=== PATIENT | male | born 1955 | race Caucasian/White ===

== ENCOUNTER 2018-04-06 21:01 | Outpatient (REF) | payer MEDICAID, SELFPAY ==
[2018-04-06 21:53] LABS: ALT 41 U/L (12-78); AST 35 U/L (15-37); Albumin 3.7 g/dL (3.4-5.0); Alkaline Phosphatase 103 U/L (46-116); Anion Gap 7.3 mmol/L (3-11); BUN 19 mg/dL (7-18); Bilirubin, Total 0.3 mg/dL (0.2-1.0); CO2 26.7 mmol/L (21.0-32.0); CREATININE 0.91 mg/dL (0.70-1.30); Calcium 9.2 mg/dL (8.5-10.1); Chloride 103 mmol/L (98-107); Cholesterol 213 mg/dL (50-200); Glucose 115 mg/dL (70-100); HDL Cholesterol 56 mg/dL (40-60); Hemoglobin A1C 6.1 % (4.5-6.2); LDL CHOLESTEROL 133 mg/dL (<100); Potassium 4.7 mmol/L (3.5-5.1); Sodium 137 mmol/L (136-145); Total Protein 7.8 g/dL (6.4-8.2); Triglyceride 132 mg/dL (30-150)
[2018-04-06 22:02] LABS: ESR 35 MM/HR (1-20)
[2018-04-06 22:19] LABS: Uric Acid 6.1 mg/dL (3.5-7.2)
== END 2018-04-06 21:21 ==
LOC: NCHCN 21:01
PROVIDERS: PCP Physician Assistant Medical; Referring Provider Physician Assistant Medical; Visit Provider Physician Assistant Medical
DX: M79.672 Pain in left foot (principal); E78.5 Hyperlipidemia, unspecified; I10 Essential (primary) hypertension; R73.01 Impaired fasting glucose
CPT/HCPCS: 80053; 80061; 83721; 85652; 83036; 84550

== ENCOUNTER 2018-06-24 18:09 | Outpatient (REF) | payer MEDICAID, SELFPAY | END 2018-06-24 18:29 | LOC: NCHCN 18:09 | PROVIDERS: PCP Physician Assistant Medical; Visit Provider Specialist/Technologist Athletic Trainer | DX: T84.624A Infection and inflammatory reaction due to internal fixation device of right fibula, initial encounter (principal) | CPT/HCPCS: 87077; 87070; 87186; 87205 ==

== ENCOUNTER 2018-08-17 14:35 | Outpatient (REF) | payer MEDICAID, SELFPAY ==
[2018-08-17 19:46] LABS: Hemoglobin A1C 6.2 % (4.5-6.2)
[2018-08-19 10:01] LABS: PSA, Screening 2.7 ng/ml (0-4.5)
== END 2018-08-17 14:55 ==
LOC: NCHCN 14:35
PROVIDERS: PCP Physician Assistant Medical; Visit Provider Physician Assistant Medical
DX: R73.01 Impaired fasting glucose (principal); Z00.00 Encounter for general adult medical examination without abnormal findings
CPT/HCPCS: 84153; 83036

== ENCOUNTER 2019-03-02 13:58 | Outpatient (REF) | payer MEDICARE, BC, SELFPAY ==
[2019-03-02 20:07] LABS: HCT 43.5 % (40.0-50.0); HGB 14.4 g/dL (13.5-17.5); Mean Corp. HGB Concentration 33.1 g/dL (32.0-36.0); Mean Corpuscular Hemoglobin 28.9 pg (27.0-33.0); Mean Corpuscular Volume 87.3 fL (80-95); Mean Platelet Volume 13.1 fL (8.0-11.0); Platelet Count 175 x1000/uL (130-400); RBC 4.98 m/cumm (4.50-6.00); RBC Distribution Width 15.5 % (11.8-14.1); White Blood Cell Count 7.34 k/cumm (4.4-10.8)
[2019-03-02 20:43] LABS: Absolute Lymphocyte Count 0.73 k/cumm (1.2-3.4); Absolute Monocyte Count 1.39 k/cumm (0.11-0.7); Absolute Neutrophil Count 5.06 k/cumm (1.2-6.7); Atypical Lymphocytes % 1
[2019-03-02 20:44] LABS: Absolute Eosinophil Count 0.07 k/cumm (0.0-0.7); Diff Comment Manual Differential
[2019-03-02 20:45] LABS: Anisocytosis 1+; Polychromasia Present
== END 2019-03-02 14:18 ==
LOC: NCHCN 13:58
PROVIDERS: PCP Physician Assistant Medical; Visit Provider Nurse Practitioner Family
DX: R10.32 Left lower quadrant pain (principal)
CPT/HCPCS: 85025

== ENCOUNTER 2019-03-03 11:58 | Outpatient (REF) | payer MEDICARE, BC, SELFPAY ==
[2019-03-04 11:04] LABS: Salmonella PCR SEE COMMENTS; Shiga Toxin PCR SEE COMMENTS; Shigella/Enteroinvasive Ecoli SEE COMMENTS
[2019-03-04 12:16] LABS: Campylobacter PCR SEE COMMENTS
== END 2019-03-03 12:18 ==
LOC: NCHCN 11:58
PROVIDERS: PCP Physician Assistant Medical; Visit Provider Nurse Practitioner Family
DX: R10.32 Left lower quadrant pain (principal)
CPT/HCPCS: 87329; 87505; 83630; 87177; 87324

== ENCOUNTER 2019-03-30 09:34 | Outpatient (CLI) | payer MEDICARE, BC, SELFPAY ==
[2019-03-30 11:09] LABS: ALT 46 U/L (16-63); AST 41 U/L (15-37); Albumin 3.9 g/dL (3.4-5.0); Alkaline Phosphatase 79 U/L (46-116); Anion Gap 8.1 mmol/L (3-11); BUN 19 mg/dL (7-18); Bilirubin, Total 0.9 mg/dL (0.2-1.0); CO2 26.9 mmol/L (21.0-32.0); CREATININE 1.04 mg/dL (0.70-1.30); Calcium 9.2 mg/dL (8.5-10.1); Calculated LDL 161 mg/dL; Chloride 103 mmol/L (98-107); Cholesterol 255 mg/dL (50-200); Glucose 107 mg/dL (70-100); HDL Cholesterol 77 mg/dL (40-60); Potassium 4.5 mmol/L (3.5-5.1); Sodium 138 mmol/L (136-145); Total Protein 7.9 g/dL (6.4-8.2); Triglyceride 86 mg/dL (30-150)
== END 2019-03-30 09:54 ==
PROVIDERS: PCP Physician Assistant Medical; Visit Provider Physician Assistant Medical
DX: R73.01 Impaired fasting glucose (principal); E78.5 Hyperlipidemia, unspecified
CPT/HCPCS: 36415; 80053; 80061

== ENCOUNTER 2019-06-07 16:27 | Outpatient (REF) | payer MEDICARE, BC, SELFPAY ==
[2019-06-07 21:36] LABS: Abs Immature Grans 0.02 k/cumm (0.0-0.09); Absolute Basophil Count 0.06 k/cumm (0.0-0.2); Absolute Lymphocyte Count 1.49 k/cumm (1.2-3.4); Absolute Monocyte Count 1.09 k/cumm (0.11-0.7); Absolute Neutrophil Count 7.56 k/cumm (1.2-6.7); Basophils % 0.6; HCT 43.8 % (40.0-50.0); HGB 14.2 g/dL (13.5-17.5); Immature Grans % 0.2; Lymphocytes % 14.4; Mean Corp. HGB Concentration 32.4 g/dL (32.0-36.0); Mean Corpuscular Hemoglobin 28.9 pg (27.0-33.0); Mean Corpuscular Volume 89.2 fL (80-95); Mean Platelet Volume 12.6 fL (8.0-11.0); Monocytes % 10.6; Neutrophils % 73.2; Platelet Count 247 x1000/uL (130-400); RBC 4.91 m/cumm (4.50-6.00); RBC Distribution Width 15.3 % (11.8-14.1); White Blood Cell Count 10.32 k/cumm (4.4-10.8)
[2019-06-07 21:52] LABS: ALT 41 U/L (16-63); AST 23 U/L (15-37); Alkaline Phosphatase 64 U/L (46-116); Amylase 47 U/L (25-115); Anion Gap 10.7 mmol/L (3-11); BUN 23 mg/dL (7-18); Bilirubin, Total 0.4 mg/dL (0.2-1.0); CO2 25.3 mmol/L (21.0-32.0); CREATININE 1.07 mg/dL (0.70-1.30); Calcium 9.6 mg/dL (8.5-10.1); Chloride 104 mmol/L (98-107); Glucose 92 mg/dL (70-100); Lipase 98 U/L (73-393); Potassium 4.5 mmol/L (3.5-5.1); Sodium 140 mmol/L (136-145); Total Protein 7.8 g/dL (6.4-8.2)
[2019-06-07 22:43] LABS: ESR 18 mm/hr (1-20)
== END 2019-06-07 16:47 ==
LOC: NCHCN 16:27
PROVIDERS: PCP Physician Assistant Medical; Visit Provider Physician Assistant Medical
DX: A04.5 Campylobacter enteritis (principal)
CPT/HCPCS: 80053; 83690; 85652; 82150; 85025

== ENCOUNTER 2019-06-08 12:58 | Outpatient (REF) | payer MEDICARE, BC, SELFPAY ==
[2019-06-09 12:34] LABS: Campylobacter PCR Negative (Negative); Salmonella PCR Negative (Negative); Shigella/Enteroinvasive Ecoli Negative (Negative)
[2019-06-13 14:48] LABS: Shiga Toxin PCR Negative (Negative)
[2019-06-14 15:31] LABS: Helicobacter pylori Ag, Feces Negative (Negative)
== END 2019-06-08 13:18 ==
LOC: NCHCN 12:58
PROVIDERS: PCP Physician Assistant Medical; Visit Provider Physician Assistant Medical
DX: R11.2 Nausea with vomiting, unspecified (principal); A04.5 Campylobacter enteritis
CPT/HCPCS: 87338; 87505; 83630

== ENCOUNTER 2019-09-08 09:22 | Outpatient (CLI) | payer MEDICARE, BC, SELFPAY ==
[2019-09-08 11:02] LABS: ALT 44 U/L (16-63); AST 36 U/L (15-37); Alkaline Phosphatase 65 U/L (46-116); BUN 19 mg/dL (7-18); Bilirubin, Total 0.5 mg/dL (0.2-1.0); CREATININE 1.07 mg/dL (0.70-1.30); Calcium 9.5 mg/dL (8.5-10.1); Calculated LDL 123 mg/dL (<100); Chloride 103 mmol/L (98-107); Cholesterol 208 mg/dL (<200); Glucose 101 mg/dL (74-106); HDL Cholesterol 71 mg/dL (40-60); Potassium 4.7 mmol/L (3.5-5.1); Sodium 142 mmol/L (136-145); Total Protein 7.7 g/dL (6.4-8.2); Triglyceride 73 mg/dL (<150)
== END 2019-09-08 09:42 ==
PROVIDERS: PCP Physician Assistant Medical; Visit Provider Physician Assistant Medical
DX: E78.5 Hyperlipidemia, unspecified (principal)
CPT/HCPCS: 36415; 80053; 80061

== ENCOUNTER 2020-07-02 11:37 | Outpatient (REF) | payer MEDICARE, BC, SELFPAY ==
[2020-07-02 20:05] LABS: ALT 57 U/L (16-63); AST 43 U/L (15-37); Albumin 4.1 g/dL (3.4-5.0); Alkaline Phosphatase 71 U/L (46-116); Anion Gap 10.4 mmol/L (3-11); BUN 22 mg/dL (7-18); Bilirubin, Total 0.5 mg/dL (0.2-1.0); CO2 24.6 mmol/L (21.0-32.0); Calcium 9.6 mg/dL (8.5-10.1); Calculated LDL 132 mg/dL (<100); Chloride 102 mmol/L (98-107); Cholesterol 225 mg/dL (<200); Glucose 108 mg/dL (74-106); HDL Cholesterol 79 mg/dL (40-60); Potassium 4.7 mmol/L (3.5-5.1); Sodium 137 mmol/L (136-145); Total Protein 8.1 g/dL (6.4-8.2); Triglyceride 74 mg/dL (<150)
[2020-07-03 18:00] LABS: PSA, Diagnostic 4.8 ng/mL (0.0-4.5)
== END 2020-07-02 11:57 ==
LOC: NCHCN 11:37
PROVIDERS: PCP Physician Assistant Medical; Visit Provider Physician Assistant Medical
DX: E78.5 Hyperlipidemia, unspecified (principal); R35.1 Nocturia
CPT/HCPCS: 80053; 80061; 84153

== ENCOUNTER 2021-03-11 09:18 | Outpatient (REF) | payer MEDICARE, BC, SELFPAY ==
[2021-03-11 15:35] LABS: ALT 51 U/L (16-63); AST 41 U/L (15-37); Alkaline Phosphatase 62 U/L (46-116); Anion Gap 11.3 mmol/L (3-11); BUN 16 mg/dL (7-18); Bilirubin, Total 0.4 mg/dL (0.2-1.0); CO2 25.7 mmol/L (21.0-32.0); Calcium 9.5 mg/dL (8.5-10.1); Calculated LDL 175 mg/dL (<100); Chloride 104 mmol/L (98-107); Cholesterol 263 mg/dL (<200); Glucose 113 mg/dL (74-106); HDL Cholesterol 69 mg/dL (40-60); Potassium 4.7 mmol/L (3.5-5.1); Sodium 141 mmol/L (136-145); Total Protein 7.8 g/dL (6.4-8.2); Triglyceride 99 mg/dL (<150)
[2021-03-11 15:37] LABS: Hemoglobin A1C 6.1 % (<5.7)
== END 2021-03-11 09:19 | disposition home or self-care (01) ==
LOC: NCHCN 09:18
PROVIDERS: PCP Physician Assistant Medical; Visit Provider Physician Assistant Medical
DX: E78.5 Hyperlipidemia, unspecified (principal); R73.09 Other abnormal glucose; Z00.8 Encounter for other general examination
CPT/HCPCS: 80053; 80061; 83036

== ENCOUNTER 2021-04-30 09:11 | Outpatient (REF) | payer MEDICARE, BC, SELFPAY ==
[2021-04-30 15:23] LABS: HCT 42.5 % (40.0-50.0); HGB 13.8 g/dL (13.5-17.5); MCH 28.1 pg (27.0-33.0); MCHC 32.5 % (32.0-36.0); MCV 86.6 fL (80-95); Platelet Count 333 10^3/uL (130-400); RBC 4.91 10^6/uL (4.36-5.78); RDW 14.5 % (11.8-14.1); RDW-SD 46.2 fL; WBC 10.75 10^3/uL (4.4-10.8)
[2021-04-30 15:24] LABS: ESR 28 mm/hr (0-20)
[2021-04-30 16:33] LABS: ALT 50 U/L (16-63); AST 34 U/L (15-37); Albumin 3.3 g/dL (3.4-5.0); Alkaline Phosphatase 62 U/L (46-116); Amylase 36 U/L (25-115); Anion Gap 8.7 mmol/L (3-11); BUN 8 mg/dL (7-18); Bilirubin, Total 0.4 mg/dL (0.2-1.0); C-Reactive Protein 0.88 mg/dL (0.0-0.3); CO2 26.3 mmol/L (21.0-32.0); Calcium 9.1 mg/dL (8.5-10.1); Chloride 106 mmol/L (98-107); Glucose 103 mg/dL (74-106); Lipase 150 U/L (73-393); Magnesium 2.1 mg/dL (1.8-2.4); Potassium 3.8 mmol/L (3.5-5.1); Sodium 141 mmol/L (136-145); Total Protein 6.8 g/dL (6.4-8.2)
== END 2021-04-30 09:12 | disposition home or self-care (01) ==
LOC: NCHCN 09:11
PROVIDERS: PCP Physician Assistant Medical; Visit Provider Physician Assistant Medical
DX: K58.9 Irritable bowel syndrome, unspecified (principal); R63.4 Abnormal weight loss
CPT/HCPCS: 80053; 83690; 85027; 85652; 82150; 83735; 86140

== ENCOUNTER 2021-05-14 01:17 | Outpatient (CLI) | payer MEDICARE, BC, SELFPAY ==
[2021-05-14] MEDS: Breeza Beverage 473 ML BTL 946 ML PO (09:20)
--- NOTE | 2021-05-14 09:20 | DI.CT_ITS ---
Exam(s) CT ABDOMEN PELVIS W EXAM: CT ABDOMEN PELVIS W CLINICAL HISTORY: ABNL WT LOSS,R63.4,PROSTATE CA,C61 TECHNIQUE: Imaging Protocol: Axial computed tomography images with coronal and sagittal reformatted images were created and reviewed CONTRAST MATERIAL: Intravenous: Omnipaque 350 Contrast volume:100 mL Oral: Yes COMPARISON: No exams were available for comparison FINDINGS: Portions of the pelvis are obscured due to artifact from the patient's bilateral hip replacements. ABDOMEN: Lung Bases: Normal where visualized. Liver: Normal density. There are 2 tiny hypodensities in the liver which are too small for further ch aracterization. There is a 7 mm cyst in the posterior segment of the right lobe of the liver. No finley spicious hepatic masses are present. Portal, Superior Mesenteric, and Splenic Veins: Unremarkable. Gallbladder and Biliary Tract: No radiodense calculus or dilation. Pancreas: Normal density, no abnormal calcifications or inflammatory process. Spleen: There is a small spleen and accessory spleen in the left upper quadrant. Adrenals: No masses seen. Kidneys: Normal size, contour and axis. No radiodense stones or obstructive uropathy. No masses seen. Abdominal Aorta: Abdominal portion non-dilated. Atherosclerosis. Bowel: No obstruction or bowel wall thickening. Appendix is unremarkable. Diverticula are seen in the sigmoid colon, but no evidence of acute diverticulitis. There is a large amount of stool throughout the colon suggesting constipation. Peritoneal Cavity: No ascites, collection or mesenteric inflammatory response. No free air. Lymph Nodes: Mildly enlarged lymph nodes are seen in the mesentery and right lower quadrant. There i s a maximum short axis diameter of 1 cm. Bones: Within normal limits for the patient's age. Grade 1 pseudo spondylolisthesis of L4 on L5 is n oted. There is a 6 mm round sclerotic focus in the L1 vertebral body. There is also a sclerotic foc us in the left pedicle at L3. Soft Tissues: Unremarkable. PELVIS: Bladder: There is a question of mild diffuse thickening of the wall of the urinary bladder. The infe rior aspect of the bladder is obscured from artifact from the patient's hip prostheses. Reproductive Organs: Unremarkable as visualized. Lymph Nodes: Please see the above discussion. Bones: Please see the above discussion. IMPRESSION: 1. Pelvic examination limited due to artifact from the patient's bilateral hip prostheses. 2. Two sclerotic foci seen in the lumbar spine. Bone scan may be considered for further evaluation. 3. Mildly enlarged lymph nodes in the mesentery. This may represent a mild infectious/inflammatory p rocess. Adenitis cannot be excluded. Please correlate clinically. 4. Constipation. RADIATION DOSE DELIVERED: 1,332.48mGy.cm Total DLP DATA REPOSITORY: All CT scans at this facility are submitted to the National Radiology Data Registry (NRDR) Dose Index Registry (DIR) with the [employer] ([employer]). RADIATION OPTIMIZATION: All CT scans at this facility use at least one of these dose optimization te chniques: automated exposure control; mA and/or kV adjustment per patient size (includes targeted exa ms where dose is matched to clinical indication); or iterative reconstruction.
[2021-05-14] MEDS: Omnipaque 350 MG/ML 50 ML BTL PO (09:21)
[2021-05-14] MEDS: Normal Saline - Diluent 50 ML VIAL IV (09:22)
[2021-05-14] MEDS: Omnipaque 350 MG/ML 100 ML BTL IJ (09:22)
== END 2021-05-14 01:37 ==
PROVIDERS: PCP Physician Assistant Medical; Visit Provider Physician Assistant Medical
DX: C61 Malignant neoplasm of prostate (principal); R63.4 Abnormal weight loss; K59.00 Constipation, unspecified; R59.0 Localized enlarged lymph nodes; M43.16 Spondylolisthesis, lumbar region
CPT/HCPCS: 74177; J3490; Q9967

== ENCOUNTER → 2021-06-17 08:39 | Outpatient (BNVA) | payer MEDICARE, BC, SELFPAY | PROVIDERS: PCP Physician Assistant Medical; Referring Provider Physician Assistant Medical; Visit Provider Student in an Organized Health Care Education/Training Program | DX: G56.03 Carpal tunnel syndrome, bilateral upper limbs (principal) | CPT/HCPCS: 99203 ==

== ENCOUNTER 2021-07-01 11:16 | Outpatient (CLI) | payer MEDICARE, BC, SELFPAY ==
--- NOTE | 2021-07-01 09:00 | DI.RAD_ITS ---
Exam(s) XR KNEE RT 3V AP,LAT,KATARINA EXAM: XR KNEE RT 3V AP,LAT,KATARINA CLINICAL HISTORY: right knee pain. TECHNIQUE: 2D digital imaging was performed. COMPARISON: No exams were available for comparison FINDINGS: No evidence of acute fracture nor prominent joint effusion. There is [id number] narrowing of the medial compartment as well as marginal osteophytes. Also sign ificant degenerative changes in the patellofemoral compartment. Mild degenerative changes in the lat eral compartment. There is a subarticular degenerative cyst in the mid tibial plateau subjacent to t he tibial spines. There is also a corticated 1.4 x 0.7 cm calcification just adjacent to the medial aspect of the medial femoral condyle. Possibly related to prior injury at this level versus is extru ded intra-articular body. This is in the region of the medial collateral ligament. IMPRESSION: Degenerative changes as described above, most prominent in the medial compartment 14 x 7 millimeter calcific density seen adjacent to the outer aspect of the medial femoral condyle, a s described above DATA REPOSITORY: RADIATION DOSE DELIVERED:
== END 2021-07-01 11:17 | disposition home or self-care (01) ==
LOC: DIORS 11:17
PROVIDERS: PCP Physician Assistant Medical; Referring Provider Physician Assistant Medical; Visit Provider Student in an Organized Health Care Education/Training Program
DX: M25.561 Pain in right knee (principal); M17.11 Unilateral primary osteoarthritis, right knee; M75.51 Bursitis of right shoulder; M75.101 Unspecified rotator cuff tear or rupture of right shoulder, not specified as traumatic
CPT/HCPCS: 73562; 99214

== ENCOUNTER 2021-07-30 03:06 | Outpatient (CLI) | payer MEDICARE, BC, SELFPAY ==
[2021-07-30 10:58] LABS: TSH 2.27 uIU/mL (0.36-3.74)
[2021-07-31 10:01] LABS: IgA 178 mg/dL (85-499); IgG 1328 mg/dL (610-1,616)
[2021-07-31 15:15] LABS: Tissue Transglutaminase Ab IgA <1.2 U/mL
== END 2021-07-30 03:07 | disposition home or self-care (01) ==
LOC: LBO 03:06 → LBN 10:48 → LBO 15:44
PROVIDERS: PCP Physician Assistant Medical; Visit Provider Internal Medicine Gastroenterology
DX: R63.4 Abnormal weight loss (principal); R14.0 Abdominal distension (gaseous); R19.4 Change in bowel habit; R19.7 Diarrhea, unspecified
CPT/HCPCS: 36415; 82784; 87329; 83516; 84443

== ENCOUNTER 2021-07-30 16:03 | Outpatient (REF) | payer MEDICARE, BC, SELFPAY ==
[2021-08-02 15:44] LABS: Giardia & Cryptosporidium Ag SEE COMMENTS
== END 2021-07-30 16:04 | disposition home or self-care (01) ==
LOC: LBN 16:03
PROVIDERS: PCP Physician Assistant Medical; Visit Provider Internal Medicine Gastroenterology
DX: R63.4 Abnormal weight loss (principal); R19.4 Change in bowel habit; R14.0 Abdominal distension (gaseous); R19.7 Diarrhea, unspecified
CPT/HCPCS: 87329

== ENCOUNTER 2021-08-06 12:10 | Outpatient (REF) | payer MEDICARE, BC, SELFPAY ==
[2021-08-06 16:07] LABS: Hemoglobin A1C 5.8 % (<5.7)
[2021-08-06 16:14] LABS: ALT 44 U/L (16-63); AST 33 U/L (15-37); Albumin 4.2 g/dL (3.4-5.0); Alkaline Phosphatase 73 U/L (46-116); Anion Gap 10.9 mmol/L (3-11); BUN 18 mg/dL (7-18); Bilirubin, Total 0.4 mg/dL (0.2-1.0); CO2 27.1 mmol/L (21.0-32.0); CREATININE 0.9 mg/dL (0.70-1.30); Calcium 9.5 mg/dL (8.5-10.1); Calculated LDL 78 mg/dL (<100); Chloride 102 mmol/L (98-107); Cholesterol 156 mg/dL (<200); Glucose 101 mg/dL (74-106); HDL Cholesterol 56 mg/dL (40-60); Potassium 4.6 mmol/L (3.5-5.1); Sodium 140 mmol/L (136-145); Triglyceride 114 mg/dL (<150)
== END 2021-08-06 12:11 | disposition home or self-care (01) ==
LOC: NCHCN 12:10
PROVIDERS: PCP Physician Assistant Medical; Visit Provider Physician Assistant Medical
DX: E78.5 Hyperlipidemia, unspecified (principal); R73.03 Prediabetes
CPT/HCPCS: 80053; 80061; 83036

== ENCOUNTER 2021-09-02 02:59 | Outpatient (CLI) | payer MEDICARE, BC, SELFPAY ==
[2021-09-02 10:15] LABS: Source Nasal/Nares
[2021-09-02 15:33] LABS: COVID-19 PCR Negative (Negative)
== END 2021-09-02 03:00 | disposition home or self-care (01) ==
LOC: LBO 03:00
PROVIDERS: PCP Physician Assistant Medical; Visit Provider Student in an Organized Health Care Education/Training Program
DX: Z20.822 Contact with and (suspected) exposure to COVID-19 (principal)
CPT/HCPCS: 87635

== ENCOUNTER 2021-09-04 06:19 | Day surgery (SDC) | payer MEDICARE, BC, SELFPAY ==
[2021-09-04 06:33] VITALS: BP 114/66; PULSE 50; RESP 16; TEMP 36.6; O2SAT 99
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
[2021-09-04] MEDS: Lactated Ringers 1,000 ML 80 ML IV (07:05)
[2021-09-04 07:11] VITALS: BMI 27.4
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
--- NOTE | 2021-09-04 07:18 | W.PM.DSUDISC ---
Discharge Plan Disposition Patient Disposition: HOME Condition: Good Discharge Details Reason For Visit: Right Carpal Tunnel Syndrome Attending Provider: Moises Rodrigues Primary Care Provider: Rolanda Bartlett Home Meds and New Rx's Prescriptions: New hydrocodone-acetaminophen 5-325 mg tablet 1 tab PO Q6H PRN (Reason: pain) Qty: 3 RF: 0 acetaminophen 500 mg tablet 500 mg PO Q6H PRN PRN (Reason: pain) Qty: 60 RF: 3 ibuprofen 600 mg tablet 600 mg PO TID PRN (Reason: pain) Qty: 60 RF: 3 Continued turmeric root extract 500 mg capsule 500 mg PO BID RF: 0 coenzyme Q10 [Co Q-10] 10 mg capsule 10 mg PO DAILY RF: 0 zolpidem [Ambien] 10 mg tablet 10 mg PO QHS PRNRF: 0 rosuvastatin [Crestor] 40 mg tablet 40 mg PO DAILY RF: 0 tramadol [Ultram] 50 MG tablet 50 mg PO Q6H PRN RF: 0 tamsulosin [Flomax] 0.4 MG capsule 0.4 mg PO DAILY RF: 0 aspirin [Aspirin Low-Strength] 81 MG tablet,chewable 81 mg PO DAILY RF: 0 amlodipine [Norvasc] 10 mg tablet 10 mg PO DAILY RF: 0 multivitamin Tablet 1 tab PO DAILY RF: 0 glucosamine HCl 1,500 mg tablet 1,500 mg PO DAILY RF: 0 Discharge Instructions Stand Alone Forms: Ravi Grajeda Tunnel Release Referrals: Moises Rodrigues MD [ [facility]] - Activity:: Elevate Remove Dressings/Wound Care:: 48 hours Shower/Bathe:: 48 hours Diet:: As Tolerated Discharge Orders Discharge Orders: Discharge Order (Routine); Ordered 09/04/21 Ordered By: Moises Rodrigues DS: Diagnosis Discharge Diagnosis (1) Right carpal tunnel syndrome: Status: Acute
[2021-09-04] MEDS: ceFAZolin 2 GM/50 ML BAG IVPB (07:23)
[2021-09-04] MEDS: Sodium Bicarbonate 50 MEQ/50 ML VIAL (07:40)
[2021-09-04 07:55] VITALS: BP 112/67; PULSE 58; RESP 20; TEMP 35.8; O2SAT 95
[2021-09-04 08:28] VITALS: BP 127/75; PULSE 45; RESP 18; TEMP 36.1; O2SAT 97
--- NOTE | 2021-09-04 08:47 | W.ANESPOSTOP ---
Postoperative Evaluation Date, Time and Location Date Performed: 09/04/21 Time Performed: 08:48 Patient Location: Day Surgery Unit Vital Signs Most Recent Imported Vital Signs: Most Recent Vital Signs Temp Pulse Resp BP Pulse Ox 36.1 C L 45 L 18 127/75 97 09/04/21 08:28 09/04/21 08:28 09/04/21 08:28 09/04/21 08:28 09/04/21 08:28 Pain Score Most Recent Pain Score: Most Recent Pain Score Pain Level 0 09/04/21 08:28 Assessment Mental Status: Awake (Alert & Oriented to Patient Baseline) Airway and Respiratory Function: Patent airway with normal (patient baseline) respiratory exam Cardiovascular Function: Hemodynamically Stable Hydration Status: Adequately Hydrated Nausea & Vomiting: No Nausea or Vomiting Pain: Pt. Denies Any Pain Peripheral Nerve Block: Patient did not receive a nerve block
--- NOTE | 2021-09-04 09:50 | W.ANESPOSTOP ---
Postoperative Evaluation Date, Time and Location Date Performed: 09/04/21 Time Performed: 08:45 Patient Location: Day Surgery Unit Vital Signs Most Recent Imported Vital Signs: Most Recent Vital Signs Temp Pulse Resp BP Pulse Ox 36.1 C L 45 L 18 127/75 97 09/04/21 08:28 09/04/21 08:28 09/04/21 08:28 09/04/21 08:28 09/04/21 08:28 Most Recent Vital Signs Temp Pulse Resp BP Pulse Ox 36.1 C L 45 L 18 127/75 97 09/04/21 08:28 09/04/21 08:28 09/04/21 08:28 09/04/21 08:28 09/04/21 08:28 Pain Score Most Recent Pain Score: Most Recent Pain Score Pain Level 0 09/04/21 08:28 Assessment Mental Status: Awake (Alert & Oriented to Patient Baseline) Airway and Respiratory Function: Patent airway with normal (patient baseline) respiratory exam Cardiovascular Function: Hemodynamically Stable Hydration Status: Adequately Hydrated Nausea & Vomiting: No Nausea or Vomiting Pain: Pt. Denies Any Pain Peripheral Nerve Block: Regional nerve block not resolved at time of post operative discharge
--- NOTE | 2021-09-04 22:29 | ROE_ITS ---
Date of service: 09/04/21 Operative Note Operative Note PRE-OP DIAGNOSIS: Right Carpal Tunnel Syndrome POST-OP DIAGNOSIS: same PROCEDURE: Right Endoscopic Carpal Tunnel Release SURGEON: Moises Rodrigues ANESTHESIA TYPE: General:No Airway Refer to Anesthesia Record ESTIMATED BLOOD LOSS: 0 PATHOLOGY: none sent TOURNIQUET TIME: 5 COMPLICATIONS: None Patient was transported to: same day Patient's condition: stable Indications: I have seen Nicholas in clinic for symptoms of carpal tunnel syndrome. The numbness, tingling, and pain limited function. Clinical exam findings [with nerve conduction tests ]confirmed the diagnosis of carpal tunnel syndrome. Nonoperative measures such as bracing, time, activity modifications had been tried but disability and pain persisted. I discussed carpal tunnel release with the patient. I reviewed the risks of the procedure to include, but not limited to, bleeding, infection, pain, stiffness, incomplete release, damage to nerves or vessels, persistent numbness, recurrence. Despite these risks, the patient elected to proceed. Findings: There was tightened carpal tunnel. This was dilated and released successfully with the endoscopic with increased space within the tunnel. The antebrachial fascia was released proximally freeing the median nerve at the wrist. Procedure Description: Nicholas was greeted in the preoperative holding area where the correct side was identified and marked. The consent was reviewed with the patient and signed. The history and physical was updated. All questions were answered. He was taken back to the operating room. The patient was placed into the supine position on the operating room table with the right arm on an arm board. A nonsterile tourniquet was placed high onto the arm. All bony prominences were well padded. Prophylactic antibiotics in the form of Cefazolin were administer ed. The right arm was then prepped with Chloraprep and draped in a standard fashion with stockinette and extremity drape. A timeout to confirm correct identity, side and site, procedure, allergies, anesthesia, and medical concerns was performed. The surgical site was marked in the volar wrist creases in line with the radial border of the fourth ray. This area was anesthetized with approximately 6cc of 1% Lidocaine. The limb was then exsanguinated with an Esmarch. The skin was incised with a 15 blade, approximately 1cm. The skin only was cut and the deeper tissue was dissected bluntly with a tenotomy scissor, avoiding passing nerve and venous structures. The fascia was penetrated and opened bluntly. A two-prong skin hook was placed under this proximal fascial edge. A series of hamate finders were used to identify and dilate the carpal tunnel. Synovial elevator was used to free synovial attachments to the underside of the transverse carpal ligament. My thumb was kept in the palm to danette the distal extent of the carpal tunnel and correctly position the hand. The [employer] endoscope was inserted without difficulty and without resistance. Excellent visualization showed horizontally running fibers of the transverse carpal ligament (TCL). The distal extent of the TCL was visualized and the end of the scope palpated with the thumb. The blade was elevated and withdrawn from distal to proximal. The TCL was split into two flaps. The endoscope was reinserted to confirm complete release and any remnant ligament was incised. The scope was withdrawn and the proximal aspect of the carpal tunnel was grossly inspected and appeared release with the median nerve visible. The antebrachial fascia at the level of the wrist was then freed from the overlying skin and then the underlying median nerve with blunt dissection. This was transected longitudinally for about 3cm proximal to the wrist incision. The wound was then irrigated with easy flow of irrigant distally and proximally. The incision was closed with a single 4-0 Nylon suture. The wound was dressed with Xeroform, Gauze, Kerlix and Juve. The tourniquet was deflated with the initial dressing and held with some pressure. Blood flow returned easily to all digits with capillary refill less than 2 seconds. The patient tolerated the procedure well and was returned to the Same Day Surgery area in a stable condition suffering no known complication.
== END 2021-09-04 09:05 | disposition home or self-care (01) ==
PROVIDERS: PCP Physician Assistant Medical; Visit Provider Student in an Organized Health Care Education/Training Program
PROC: 01N54ZZ Release Median Nerve, Percutaneous Endoscopic Approach (ICD-10-PCS; CPT 29848; principal; 2021-09-04 07:30)
DX: G56.01 Carpal tunnel syndrome, right upper limb (principal); G62.9 Polyneuropathy, unspecified; R73.02 Impaired glucose tolerance (oral); I10 Essential (primary) hypertension; E78.5 Hyperlipidemia, unspecified; K21.9 Gastro-esophageal reflux disease without esophagitis
CPT/HCPCS: 29848; J0690; J1885; J2001; J3010

== ENCOUNTER 2021-09-10 11:31 | Outpatient (CLI) | payer MEDICARE, BC, SELFPAY ==
--- NOTE | 2021-09-10 11:15 | DI.RAD_ITS ---
Exam(s) XR SHOULDER LT COMPLETE 2+V EXAM: XR SHOULDER LT COMPLETE 2+V CLINICAL HISTORY: left shoulder weakness. TECHNIQUE: 2D digital imaging was performed. COMPARISON: No exams were available for comparison FINDINGS: No evidence of fracture or dislocation. There are significant degenerative changes in the glenohumer al joint including opposing moderate-sized osteophytes on the inferior articular surfaces of the ruby ral head and osseous glenoid. There also multiple degenerative subarticular cysts in the humeral hea d. There is a somewhat diminished subacromial space. Some degenerative change in the AC joint noted . Also small calcific density seen anteriorly on the axial image. Possibly calcific rotator cuff te ndinitis. IMPRESSION: Significant osteoarthritic degenerative changes in the glenohumeral joint. Also suspect rotator cuff pathology here. DATA REPOSITORY: RADIATION DOSE DELIVERED:
--- NOTE | 2021-09-10 11:15 | DI.RAD_ITS ---
Exam(s) XR SHOULDER RT COMPLETE 2+V EXAM: XR SHOULDER RT COMPLETE 2+V CLINICAL HISTORY: right shoulder pain. TECHNIQUE: 2D digital imaging was performed. COMPARISON: CR XR SHOULDER LT COMPLETE 2+V from 09/10/2021 FINDINGS: There is no evidence of fracture or dislocation. Moderate degenerative changes are noted in the leela ohumeral joint. There are small opposing osteophytes on the inferior articular surfaces of the humer al head and osseous glenoid. There also multiple degenerative subarticular cyst in the humeral head. There is somewhat diminished subacromial space and there are moderate degenerative changes in the A C joint. These findings may indicate rotator cuff pathology. IMPRESSION: DATA REPOSITORY: RADIATION DOSE DELIVERED:
== END 2021-09-10 11:32 | disposition home or self-care (01) ==
LOC: DIORS 11:32
PROVIDERS: PCP Physician Assistant Medical; Referring Provider Physician Assistant Medical; Visit Provider Student in an Organized Health Care Education/Training Program
DX: M25.512 Pain in left shoulder (principal); M25.511 Pain in right shoulder; M19.011 Primary osteoarthritis, right shoulder; M19.012 Primary osteoarthritis, left shoulder; M25.712 Osteophyte, left shoulder; M25.711 Osteophyte, right shoulder; M75.101 Unspecified rotator cuff tear or rupture of right shoulder, not specified as traumatic; M75.51 Bursitis of right shoulder; M75.102 Unspecified rotator cuff tear or rupture of left shoulder, not specified as traumatic
CPT/HCPCS: 99214; 73030

== ENCOUNTER → 2021-09-13 09:03 | Outpatient (BNVA) | payer MEDICARE, BC, SELFPAY | PROVIDERS: PCP Physician Assistant Medical; Referring Provider Physician Assistant Medical; Visit Provider Student in an Organized Health Care Education/Training Program | DX: G56.01 Carpal tunnel syndrome, right upper limb (principal) ==

== ENCOUNTER 2021-09-16 02:19 | Outpatient (CLI) | payer MEDICARE, BC, SELFPAY ==
[2021-09-16 11:26] LABS: Source Nasal/Nares
[2021-09-16 17:58] LABS: COVID-19 PCR Negative (Negative)
== END 2021-09-16 02:20 | disposition home or self-care (01) ==
PROVIDERS: PCP Physician Assistant Medical; Visit Provider Student in an Organized Health Care Education/Training Program
DX: Z20.822 Contact with and (suspected) exposure to COVID-19 (principal); Z01.818 Encounter for other preprocedural examination
CPT/HCPCS: 87635; U0005

== ENCOUNTER 2021-09-17 10:26 | Day surgery (SDC) | payer MEDICARE, BC, SELFPAY ==
[2021-09-17 10:30] VITALS: BP 139/67; PULSE 51; RESP 16; TEMP 36.7; O2SAT 99
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
[2021-09-17] MEDS: Lactated Ringers 1,000 ML 80 ML IV (11:06)
[2021-09-17 11:19] VITALS: BMI 27.8
--- NOTE | 2021-09-17 11:40 | W.PM.DSUDISC ---
Discharge Plan Disposition Patient Disposition: HOME Condition: Good Discharge Details Attending Provider: Moises Rodrigues Primary Care Provider: Rolanda Bartlett Home Meds and New Rx's Prescriptions: Continued turmeric root extract 500 mg capsule 500 mg PO BID 0RF coenzyme Q10 [Co Q-10] 10 mg capsule 10 mg PO DAILY 0RF zolpidem [Ambien] 10 mg tablet 10 mg PO QHS PRN0RF rosuvastatin [Crestor] 40 mg tablet 40 mg PO DAILY 0RF tramadol [Ultram] 50 MG tablet 50 mg PO Q6H PRN 0RF aspirin [Aspirin Low-Strength] 81 MG tablet,chewable 81 mg PO DAILY 0RF amlodipine [Norvasc] 10 mg tablet 10 mg PO DAILY 0RF multivitamin Tablet 1 tab PO DAILY 0RF glucosamine HCl 1,500 mg tablet 1,500 mg PO DAILY 0RF Rx Instructions: administer with a meal acetaminophen 500 mg tablet 500 mg PO Q6H PRN PRN (Reason: pain) Qty: 60 3RF ibuprofen 600 mg tablet 600 mg PO TID PRN (Reason: pain) Qty: 60 3RF Discharge Instructions Stand Alone Forms: Ravi Grajeda Tunnel Release Activity:: Activity as Tolerated Remove Dressings/Wound Care:: 48 hours Shower/Bathe:: 48 hours Diet:: As Tolerated Discharge Orders Discharge Orders: Discharge Order (Routine); Ordered 09/17/21 Ordered By: Cassius Panchal DS: Diagnosis Discharge Diagnosis (1) Left carpal tunnel syndrome: Status: Acute
[2021-09-17] MEDS: ceFAZolin 2 GM/50 ML BAG IVPB (11:50)
[2021-09-17] MEDS: Lidocaine 1% Multi-Dose 50 ML VIAL (12:02)
[2021-09-17] MEDS: Sodium Bicarbonate 50 MEQ/50 ML VIAL (12:02)
[2021-09-17 12:15] VITALS: BP 99/73; PULSE 59; RESP 16; TEMP 36.7; O2SAT 94
--- NOTE | 2021-09-17 12:39 | W.ANESPOSTOP ---
Postoperative Evaluation Date, Time and Location Date Performed: 09/17/21 Time Performed: 12:39 Patient Location: Day Surgery Unit Vital Signs Most Recent Imported Vital Signs: Most Recent Vital Signs Temp Pulse Resp BP Pulse Ox 36.7 C 59 L 16 99/73 L 94 09/17/21 12:15 09/17/21 12:15 09/17/21 12:15 09/17/21 12:15 09/17/21 12:15 Pain Score Most Recent Pain Score: Most Recent Pain Score Pain Level 0 09/17/21 12:15 Assessment Mental Status: Awake (Alert & Oriented to Patient Baseline) Airway and Respiratory Function: Patent airway with normal (patient baseline) respiratory exam Cardiovascular Function: Hemodynamically Stable Hydration Status: Adequately Hydrated Nausea & Vomiting: No Nausea or Vomiting Pain: Pt. Denies Any Pain Peripheral Nerve Block: Patient did not receive a nerve block
[2021-09-17 12:45] VITALS: BP 116/77; PULSE 44; RESP 16; TEMP 36.6; O2SAT 97
--- NOTE | 2021-09-17 21:25 | ROE_ITS ---
Date of service: 09/17/21 Time of Service: 14:00 Operative Note Operative Note PRE-OP DIAGNOSIS: Left Carpal Tunnel Syndrome POST-OP DIAGNOSIS: same PROCEDURE: Left Endoscopic Carpal Tunnel Release SURGEON: Moises Rodrigues ANESTHESIA TYPE: General:No Airway Refer to Anesthesia Record ESTIMATED BLOOD LOSS: 0 PATHOLOGY: none sent TOURNIQUET TIME: 4 COMPLICATIONS: None Patient was transported to: same day Patient's condition: stable Indications: I have seen Nicholas in clinic for symptoms of carpal tunnel syndrome. The numbness, tingling, and pain limited function. Clinical exam findings with nerve conduction tests confirmed the diagnosis of carpal tunnel syndrome. Nonoperative measures such as bracing, time, activity modifications had been tried but disability and pain persisted. He had a successful carpal tunnel release on the right side previously. discussed carpal tunnel release with the patient. I reviewed the risks of the procedure to include, but not limited to, bleeding, infection, pain, stiffness, incomplete release, damage to nerves or vessels, persistent numbness, recurrence. Despite these risks, the patient elected to proceed. Findings: There was tightened carpal tunnel. This was dilated and released successfully with the endoscopic with increased space within the tunnel. The antebrachial fascia was released proximally freeing the median nerve at the wrist. Procedure Description: Leonard was greeted in the preoperative holding area where the correct side was identified and marked. The consent was reviewed with the patient and signed. The history and physical was updated. All questions were answered. He was taken back to the operating room. The patient was placed into the supine position on the operating room table with the left arm on an arm board. A nonsterile tourniquet was placed high onto the arm. All bony prominences were well padded. Prophylactic antibiotics in the form of Cefazolin were administered. The left arm was then prepped with Chloraprep and draped in a standard fashion with stockinette and extremity drape. A timeout to confirm correct identity, side and site, procedure, allergies, anesthesia, and medical concerns was performed. The surgical site was marked in the volar wrist creases in line with the radial border of the fourth ray. This area was anesthetized with approximately 6cc of 1% Lidocaine. The limb was then exsanguinated with an Esmarch. The skin was in cised with a 15 blade, approximately 1cm. The skin only was cut and the deeper tissue was dissected bluntly with a tenotomy scissor, avoiding passing nerve and venous structures. The fascia was penetrated and opened bluntly. A two-prong skin hook was placed under this proximal fascial edge. A series of hamate finders were used to identify and dilate the carpal tunnel. Synovial elevator was used to free synovial attachments to the underside of the transverse carpal ligament. My thumb was kept in the palm to danette the distal extent of the carpal tunnel and correctly position the hand. The [employer] endoscope was inserted without difficulty and without resistance. Excellent visualization showed horizontally running fibers of the transverse carpal ligament (TCL). The distal extent of the TCL was visualized and the end of the scope palpated with the thumb. The blade was elevated and withdrawn from distal to proximal. The TCL was split into two flaps. The endoscope was reinserted to confirm complete release and any remnant ligament was incised. The scope was withdrawn and the proximal aspect of the carpal tunnel was grossly inspected and appeared release with the median nerve visible. The antebrachial fascia at the level of the wrist was then freed from the overlying skin and then the underlying median nerve with blunt dissection. This was transected longitudinally for about 3cm proximal to the wrist incision. The wound was then irrigated with easy flow of irrigant distally and proximally. The incision was closed with a single 4-0 Nylon suture. The wound was dressed with Xeroform, Gauze, Kerlix and Juve. The tourniquet was deflated with the initial dressing and held with some pressure. Blood flow returned easily to all digits with capillary refill less than 2 seconds. The patient tolerated the procedure well and was returned to the Same Day Surgery area in a stable condition suffering no known complication.
== END 2021-09-17 13:35 | disposition home or self-care (01) ==
PROVIDERS: PCP Physician Assistant Medical; Visit Provider Student in an Organized Health Care Education/Training Program
PROC: 01N54ZZ Release Median Nerve, Percutaneous Endoscopic Approach (ICD-10-PCS; CPT 29848; principal; 2021-09-17 11:30)
DX: G56.02 Carpal tunnel syndrome, left upper limb (principal); I10 Essential (primary) hypertension; E78.5 Hyperlipidemia, unspecified; C61 Malignant neoplasm of prostate
CPT/HCPCS: 29848; J0690; J1885; J2405

== ENCOUNTER → 2021-09-26 08:30 | Outpatient (BNVA) | payer MEDICARE, BC, SELFPAY | PROVIDERS: PCP Physician Assistant Medical; Referring Provider Physician Assistant Medical; Visit Provider Student in an Organized Health Care Education/Training Program | DX: G56.02 Carpal tunnel syndrome, left upper limb (principal); G56.01 Carpal tunnel syndrome, right upper limb ==

== ENCOUNTER 2021-10-01 01:15 | Outpatient (CLI) | payer MEDICARE, BC, SELFPAY ==
--- NOTE | 2021-10-01 | DI.MRI_ITS ---
Exam(s) MR PELVIS WO EXAM: MR PELVIS WO CLINICAL HISTORY: PROSTATE CA,C61,S/P FUDUCIAL MARKER,HYDROGEL,RADIATION PLANNIING. TECHNIQUE: Multiplanar multisequence MRI was performed. COMPARISON: No exams were available for comparison FINDINGS: This examination was obtained for radiation planning. There is a an apparent hydro gel implant in pl tristian posterior to the prostate. Urinary bladder appears grossly intact. Prostate is enlarged and het erogeneous. No gross pelvic adenopathy identified. IMPRESSION: Schneider gel marker in place. DATA REPOSITORY:
== END 2021-10-01 01:35 ==
PROVIDERS: PCP Physician Assistant Medical; Visit Provider Radiology Radiation Oncology
DX: C61 Malignant neoplasm of prostate (principal)
CPT/HCPCS: 72195

== ENCOUNTER 2021-11-13 09:11 | Outpatient (CLI) | payer MEDICARE, BC, SELFPAY ==
[2021-11-13 12:11] LABS: Source Nasal/Nares
[2021-11-13 18:31] LABS: COVID-19 PCR Negative (Negative)
== END 2021-11-13 09:12 | disposition home or self-care (01) ==
PROVIDERS: PCP Physician Assistant Medical; Visit Provider Preventive Medicine Undersea and Hyperbaric Medicine
DX: Z20.822 Contact with and (suspected) exposure to COVID-19 (principal); Z01.818 Encounter for other preprocedural examination; J02.9 Acute pharyngitis, unspecified
CPT/HCPCS: 87635; U0005

== ENCOUNTER 2022-09-08 12:04 | Outpatient (CLI) | payer MEDICARE, BC, SELFPAY ==
--- NOTE | 2022-09-08 11:45 | DI.RAD_ITS ---
Exam(s) XR STANDING ALIGNMENT XR KNEE RT 1V EXAM: XR STANDING ALIGNMENT CLINICAL HISTORY: RIGHT KNEE OA. TECHNIQUE: 2D digital imaging was performed. Standing AP views were performed from the pelvis throu gh the ankles. Lateral view right knee COMPARISON: CR XR KNEE RT 3V AP,LAT,KATARINA from 07/01/2021 CR XR KNEE RT 1V from 09/08/2022 FINDINGS: BONES: No acute fracture is present. No bony destructive lesion is seen. Leg length discrepancy: No significant overall leg length discrepancy JOINTS: Knees: Severe narrowing medial femoral tibial joint of the right knee. Prominent spurring at the patellofemoral joint. Left knee shows no significant joint space narrowing. The ankle joints are unremarkable. Fixation plate distal fibula. Bilateral hip prostheses noted. Surrounding heterotopic ossification. SOFT TISSUE: Normal. IMPRESSION: Severe degenerative changes right knee. No significant leg length discrepancy. DATA REPOSITORY: RADIATION DOSE DELIVERED:
== END 2022-09-08 12:05 | disposition home or self-care (01) ==
LOC: DIORS 12:04
PROVIDERS: PCP Physician Assistant Medical; Referring Provider Physician Assistant Medical; Visit Provider Student in an Organized Health Care Education/Training Program
DX: M17.11 Unilateral primary osteoarthritis, right knee (principal)
CPT/HCPCS: 99213; 73560; 77073

== ENCOUNTER 2022-10-20 02:32 | Outpatient (CLI) | payer MEDICARE, BC, SELFPAY ==
[2022-10-20 09:14] LABS: HCT 42.9 % (40.0-50.0); MCH 28.6 pg (27.0-33.0); MCHC 32.6 % (32.0-36.0); MCV 88 fL (80-95); MPV 12.1 fL (8.0-11.0); Platelet Count 222 10^3/uL (130-400); RBC 4.89 10^6/uL (4.36-5.78); RDW 14.9 % (11.8-14.1); RDW-SD 48.3 fL; WBC 5.26 10^3/uL (4.4-10.8)
[2022-10-20 09:39] LABS: Anion Gap 8.1 mmol/L (3-11); BUN 20 mg/dL (7-18); CO2 28.9 mmol/L (21.0-32.0); CREATININE 1.1 mg/dL (0.70-1.30); Calcium 9.5 mg/dL (8.5-10.1); Chloride 100 mmol/L (98-107); Estimated GFR 72.67 (mL/min/1.73m2); Glucose 120 mg/dL (74-106); Potassium 4.1 mmol/L (3.5-5.1); Sodium 137 mmol/L (136-145)
== END 2022-10-20 02:33 | disposition home or self-care (01) ==
LOC: LBO 02:32
PROVIDERS: PCP Physician Assistant Medical; Visit Provider Student in an Organized Health Care Education/Training Program
DX: M25.561 Pain in right knee (principal); M17.11 Unilateral primary osteoarthritis, right knee; Z01.818 Encounter for other preprocedural examination; Z01.812 Encounter for preprocedural laboratory examination
CPT/HCPCS: 36415; 80048; 85027

== ENCOUNTER 2022-10-28 07:22 | Day surgery (SDC) | payer MEDICARE, BC, SELFPAY ==
[2022-10-28] VITALS (10 sets, daily range): BP systolic 128–184; BP diastolic 72–92; PULSE 46–69; RESP 15–21; TEMP 36.1–37; O2SAT 94–99; BMI 28.8
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
[2022-10-28] MEDS: Gabapentin 300 MG CAP PO (07:50)
[2022-10-28] MEDS: Celecoxib 200 MG CAP 400 MG PO (07:50)
[2022-10-28] MEDS: Acetaminophen 500 MG TAB 1000 MG PO (07:50)
[2022-10-28] MEDS: Lactated Ringers 1,000 ML 80 ML IV (07:51)
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
[2022-10-28] MEDS: ceFAZolin 2 GM/50 ML BAG IVPB (08:55)
[2022-10-28] MEDS: HYDROmorphone 2 MG/ML SYR IVP ×2 (11:04→11:15)
[2022-10-28] MEDS: Normal Saline 10 ML VIAL IJ (11:04)
--- NOTE | 2022-10-28 12:42 | W.ANESNERVE ---
Nerve Block Single Injection Procedure Date and Time Date Performed: 10/28/22 Procedure Start: 08:45 Location Where Procedure Performed Procedure Location: Day Surgery Unit Reason Performed: Postoperative Analgesia Requesting Provider: Moises Rodrigues Timeout Performed Timeout Performed: Yes Monitoring Used ECG, Blood Pressure, SpO2 and See EMR for corresponding vital signs Sterility Sterility: Hand Hygiene, Surgical Cap, Surgical Mask, Sterile Gloves and Chlorhexidine Sedation Given During Procedure Sedation Given (Indicate Dose Given): No Sedation given Patient Mental Status Patient Mental Status: Awake Nerve Block 1st Nerve Block: Laterality: Right Block Type: Adductor Canal Ultrasound Image Saved?: Yes Needle / Catheter Used: 100mm SonoPlex II Local Anesthetic Bolus (Indicate Dose Given): Lidocaine used for local infiltration of skin, Injected in 3-5ml increments after negative blood aspiration and Bupivacaine 0.25% Dose:: 20ml Additives (Indicate Dose Given): None Ultrasound: Sterile probe cover and gel used Nerve Stimulator: Not Used Paresthesia: None Procedure Tolerated: No Complications and Patient tolerated well Procedure Outcome: Successful Performed By: Ravinder Lynn
--- NOTE | 2022-10-28 13:30 | W.ANESPOSTOP ---
Postoperative Evaluation Date, Time and Location Date Performed: 10/28/22 Time Performed: 13:30 Patient Location: Day Surgery Unit Vital Signs Most Recent Imported Vital Signs: Most Recent Vital Signs Temp Pulse Resp BP Pulse Ox 36.3 C L 59 L 17 128/79 94 10/28/22 12:34 10/28/22 12:34 10/28/22 12:34 10/28/22 12:34 10/28/22 12:34 Pain Score Most Recent Pain Score: Most Recent Pain Score Pain Level 2 10/28/22 12:34 Assessment Mental Status: Awake (Alert & Oriented to Patient Baseline) Airway and Respiratory Function: Patent airway with normal (patient baseline) respiratory exam Cardiovascular Function: Hemodynamically Stable Hydration Status: Adequately Hydrated Nausea & Vomiting: No Nausea or Vomiting Pain: Pain is tolerable per patient Peripheral Nerve Block: Regional nerve block not resolved at time of post operative discharge
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
--- NOTE | 2022-10-28 16:33 | ROE_ITS ---
Date of service: 10/28/22 Time of Service: 10:30 Operative Note Operative Note DATE OF PROCEDURE: 10/28/22 PRE-OP DIAGNOSIS: Right Knee Osteoarthritis POST-OP DIAGNOSIS: same PROCEDURE: Right Total Knee Replacement SURGEON: Moises Rodrigues EXERCISE EQUIPMENT REPAIR TECHNICIAN: Court Naik ANESTHESIA TYPE: Spinal Refer to Anesthesia Record ESTIMATED BLOOD LOSS: 250 PATHOLOGY: none sent TOURNIQUET TIME: 0 COMPLICATIONS: None Patient was transported to: PACU Patient's condition: stable Implants: 1. Depuy Attune Cementless Cruciate Retaining Femoral Component, Size 9 2. Depuy Attune Cementless Fixed Bearing Tibial Component, Size 9 3. Depuy Attune 9x5 CR/FB Poly 4. Depuy Attune Patellar Component, Size 41 Indications: I have seen Nicholas in clinic for symptoms of knee arthritis, confirmed with radiographic findings. He has exhausted nonoperative methods and was having significant limitations in daily function and desired better function and less pain. I discussed the technical details of a knee replacement. I explained the risks of the procedure to include, but not limited to, bleeding, infection, pain, stiffness, fracture, damage to nerves and vessels, damage to muscles and tendons, loosening, need for repeat procedure, blood clot and cardiopulmonary demise. Despite these risks, Nicholas elected to proceed. Findings: There was significant signs of arthritis throughout the knee, mostly involving the medial compartment. Procedure Description: Nicholas was greeted in the preoperative holding area where the correct side was identified and marked. The consent was reviewed with the patient and signed. The history and physical was updated. All questions were answered. Preoperative medications were administered: Acetaminophen 1000mg, Celebrex 400mg, and Gabapentin 300mg. An adductor canal block was then administered by the anesthesia team in the PACU. Nicholas was taken back to the operating room. A spinal anesthestic was then administered. The patient was placed into the supine position on the operating room table. A nonsterile tourniquet was placed high onto the leg but only used for cementing. Posts were placed for positioning during the procedure. All bony prominences were well padded. Prophylactic antibiotics in the form of Cefazolin were administered. 1g of Tranxemic Acid was given intravenously within 30 minutes of incision. The right leg was then prepped with Chloraprep and draped in a standard fashion with impervious stockinette. A second prep with Chloraprep was performed prior to application of Iodine impregnated skin protection. A timeout to confirm correct identity, side and site, procedure, allergies, anesthesia, and medical concerns was performed. With the knee in some flexion, a midline incision was made overlying the knee. Full thickness skin flaps were raised once the extensor mechanism was encountered. These were raised medially and laterally. Any bleeding was controlled with electrocautery. Once the extensor mechanism was fully exposed, a medial parapatellar arthrotomy was performed in a flexed position. All bleeding from the arthrotomy and the geniculate arteries was coagulated. A medial subperiosteal peel was performed with electrocautery to the midcoronal plane. The fat pad was removed while keeping the patellar tendon protected. The anterior distal femur synovium was removed for later visualization. The ACL and PCL were resected and the anterior horn of the lateral meniscus was transected. The knee was then flexed with the patella everted. Large osteophytes from the tibia were removed. Large osteophytes from the femur were removed. Using a step drill, and based on preoperative templating, the femoral canal was entered. This was done with a step drill without any difficulty. The intramedullary distal femoral cut guide was inserted, set to a 5 degree valgus cut and 9mm cut thickness. The distal femoral cut guide was then held in position and pinned. With the soft tissues protected, the distal cut was performed. This was passed over a few times to ensure a planar cut. I then turned attention to the tibia. The extramedullary guide was placed onto the leg. The distal aspect was slid medial to adjust for position of center of ankle and stay in line with shaft of the tibia. Approximately 3-5 degrees of posterior slope was kept in the proximal cutting guide. The center of the guide was aligned with the PCL. The stylus was used to assess cut thickness. The medial side, most involved side, was set for a 4mm cut. This was then held in position and pinned into place with 2 additional pins and a cross pin for stability. The medial and lateral collateral ligaments were protected and the cut was performed. With this completed, it was assessed and noted to be of appropriate dimensions. The guide was removed. A spacer block was inserted and the knee was brought into extension. The 5mm spacer block provided full extension, without hyperextension and with stability of both the medial and lateral collateral ligaments was assessed. The pins from the femur and the tibia were then removed. The distal femur was then sized. The anterior stylus was placed onto the lateral ridge of the anterior femur. This indicated a size 9 femur. The external rotation of the guide was adjusted to 3 degrees to match the epicondylar axis, perpendicular to [place]?s line. The 4-in-1 cutting guide was the placed. The posterior medial femur cut was evaluated and appeared of good thickness. The spacer block was inserted underneath the cutting guide and stability was confirmed in 90 degrees of flexion. An yuri wing was used to confirm appropriate position of the anterior cut to avoid notching. This cutting guide was ensured to be flush on the cut surface and then pinned into place with headed pins. While protecting the soft tissues, quad tendon, and collateral ligaments, the anterior and posterior cuts were performed with a saw. The central two pins were removed and the posterior and anterior chamfers were cut next. The notch-cutting guide was placed. This was pinned to lateralize the femoral component as much as possible while keeping it flush on the cut surface. This was then pinned into position. A reciprocating saw was used to make the notch cut. A rasp smoothed the cut surfaces. The medial and lateral menisci were removed. A trial femoral component was then inserted, impacted down to the cut surfaces, and the lug holes were drilled. A provisional trial tibial component was placed and the knee was brought through range of motion. There was noted to be excellent extension and flexion. There was no significant instability. The patella was tracking without thumbs. A size 5mm polyethylene component provided the best range of motion and stability with less than 2mm gapping with medial and lateral stress and full extension without significant hyperextension. The tibial cut surface was fully exposed. The tibia was then sized as a 9. The tibia had been previously marked during trialing to correspond to the center of the tibial component to help with rotation. The trial was aligned to this danette, approximately rotated to the medial 1/3rd of the tibial tubercle. The trial was pinned into place. The tibia was prepared with a reamer and a keel punch and lug holes. The knee was then brought into extension and the patella was measured as 31mm. Using the patellar clamp and cut guide, this was resected to a flat surface with at least 13mm of thickness remaining. The size 41 patella fit the best. This was oriented and then clamped into position. The lugs were drilled. The trial components were removed. The final components were opened on the back table. The periosteal and capsular tissues, especially posteriorly, around the knee were then systematically injected with a periarticular cocktail consisting of 246mg of Ropivacaine, 0.5mg of Epinephrine, 0.08mg of Clonidine, and 30mg of Ketorolac, diluted to 100cc. On the back table, with the implants opened, the cement was mixed. One batch of high viscosity cement was prepared with vacuum assistance. After the cement was ready a small amount was placed on the cut surface of the patella and the patellar button was clamped into position and held. While the cement was hardening, the cementless knee components were placed. Starting with the tibial component, the tibia was subluxed anteriorly and the lug holes of the component were lined up. The tibia was then impacted with an impactor and mallet until the tibial component was in contact with the tibia. The final polyethylene component was inserted. Then, the femoral component was inserted. The lug holes were aligned and the component was impacted into position. The knee was irrigated with Irrisept Chlorhexadine solution. This was allowed to sit in the knee for 3 minutes and then it was irrigated out with saline. After the cement had finally cured, approximately 15min, the clamp was removed from the patella and the knee was taken through range of motion. The patella was tracking with a no-thumbs technique. The capsule was then reapproximated with a No. 1 Vicryl at multiple locations. The capsule was finally closed with a No. 2 Stratafix, barbed suture. The second dosing of 1g TXA was started. Deep tissues were then reapproximated with 0 Vicryl and 2-0 Vicryl. The skin was closed with a running 3-0 Monocryl in a subcuticular fashion. This was reinforced with skin glue. A Mepilex silver dressing was applied along with a [id number] RUSSELL wrap. A CryoCuff was applied. Nicholas was transferred to the hospital bed without difficulty an suffering no apparent complication. Nicholas has a good prognosis. Physical therapy will start today and without restrictions, weight-bearing as tolerated. Aspirin 81mg BID will be used for DVT prophylaxis.
== END 2022-10-28 14:20 | disposition home or self-care (01) ==
PROVIDERS: PCP Physician Assistant Medical; Visit Provider Student in an Organized Health Care Education/Training Program
PROC: (CPT 27447; principal; 2022-10-28 09:30)
DX: M17.11 Unilateral primary osteoarthritis, right knee (principal); R73.03 Prediabetes; K21.9 Gastro-esophageal reflux disease without esophagitis
CPT/HCPCS: 27447; C1776; 76942; 97162; 97530; J0690; J1100; J1170; J2250; J2405

== ENCOUNTER 2022-11-10 11:14 | Outpatient (CLI) | payer MEDICARE, BC, SELFPAY ==
--- NOTE | 2022-11-10 10:45 | DI.RAD_ITS ---
Exam(s) XR KNEE RT 1V EXAM: XR KNEE RT 1V CLINICAL HISTORY: 1ST POST OP R TKA. TECHNIQUE: 2D digital imaging was performed. COMPARISON: CR XR KNEE RT 1V from 09/08/2022 FINDINGS: Single lateral view: Components of the prosthesis appears satisfactory on the lateral. No fracture nor loosening evident. IMPRESSION: DATA REPOSITORY: RADIATION DOSE DELIVERED:
--- NOTE | 2022-11-10 10:45 | DI.RAD_ITS ---
Exam(s) XR STANDING ALIGNMENT EXAM: XR STANDING ALIGNMENT CLINICAL HISTORY: 1ST POST OP R TKA. TECHNIQUE: 2D digital imaging was performed. COMPARISON: CR XR STANDING ALIGNMENT from 09/08/2022 FINDINGS: There is no right hip prosthesis in place appears satisfactory. Mild narrowing of the medial compart ment of the opposite-left knee noted. Lateral fixation plate along the distal lateral fibula left si de is again noted. Bilateral hip prostheses are again noted. Abundant dystrophic calcification agai n noted around the left hip prosthesis and moderate amount around the right hip prosthesis. IMPRESSION: As above. DATA REPOSITORY: RADIATION DOSE DELIVERED:
== END 2022-11-10 11:15 | disposition home or self-care (01) ==
LOC: DIORS 11:14
PROVIDERS: PCP Physician Assistant Medical; Referring Provider Physician Assistant Medical; Visit Provider Student in an Organized Health Care Education/Training Program
DX: Z96.651 Presence of right artificial knee joint (principal); Z47.1 Aftercare following joint replacement surgery; L76.81 Other intraoperative complications of skin and subcutaneous tissue
CPT/HCPCS: 73560; 77073

== ENCOUNTER → 2022-12-11 10:56 | Outpatient (BNVA) | payer MEDICARE, BC, SELFPAY | PROVIDERS: PCP Physician Assistant Medical | DX: Z47.1 Aftercare following joint replacement surgery (principal); Z96.651 Presence of right artificial knee joint ==

== ENCOUNTER → 2023-01-22 10:31 | Outpatient (BNVA) | payer MEDICARE, BC, SELFPAY | PROVIDERS: PCP Physician Assistant Medical; Referring Provider Physician Assistant Medical; Visit Provider Student in an Organized Health Care Education/Training Program | DX: Z47.1 Aftercare following joint replacement surgery (principal); Z96.651 Presence of right artificial knee joint ==

== ENCOUNTER 2023-02-03 11:05 | Emergency (ER) | payer MEDICARE, BC, SELFPAY ==
[2023-02-03 11:14] VITALS: BP 141/71; PULSE 50; RESP 17; TEMP 36.8; O2SAT 98
--- NOTE | 2023-02-03 11:15 | DI.RAD_ITS ---
Exam(s) XR HIP RT COMPLETE AP PELVIS EXAM: XR HIP RT COMPLETE AP PELVIS CLINICAL HISTORY: pain post fall. TECHNIQUE: 2D digital imaging was performed. COMPARISON: CT CT ABDOMEN PELVIS W from 05/14/2021 FINDINGS: Two views: No evidence of acute fracture. Bilateral hip prostheses again noted. These appear unchanged from CT scan of 05/14/2021. Dystrophic calcification between the greater trochanter and the acetabulum of the left hip is again n oted. Similar but slightly less amount of the same seen on the right side. SI joints unremarkable. No hardware loosening. No radiographic evidence of osteomyelitis. IMPRESSION: Stable appearance. DATA REPOSITORY: RADIATION DOSE DELIVERED:
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
[2023-02-03] MEDS: Acetaminophen 325 MG TAB 650 MG PO (12:02)
== END 2023-02-03 12:50 | disposition home or self-care (01) ==
PROVIDERS: Emergency Provider Emergency Medicine; PCP Physician Assistant Medical
DX: S39.011A Strain of muscle, fascia and tendon of abdomen, initial encounter (principal); X19.XXXA Contact with other heat and hot substances, initial encounter
CPT/HCPCS: 99283; 73502; 99284

== ENCOUNTER 2023-04-13 04:27 | Outpatient (CLI) | payer MEDICARE, BC, SELFPAY ==
[2023-04-13 12:38] LABS: ALT 38 U/L (16-63); AST 32 U/L (15-37); Alkaline Phosphatase 75 U/L (46-116); Anion Gap 8.4 mmol/L (3-11); BUN 21 mg/dL (7-18); Bilirubin, Total 0.6 mg/dL (0.2-1.0); CO2 27.6 mmol/L (21.0-32.0); CREATININE 1.1 mg/dL (0.70-1.30); Calcium 10.2 mg/dL (8.5-10.1); Calculated LDL 106 mg/dL (<100); Chloride 100 mmol/L (98-107); Cholesterol 197 mg/dL (<200); Estimated GFR 72.67 (mL/min/1.73m2); Glucose 117 mg/dL (74-106); HDL Cholesterol 74 mg/dL (40-60); Potassium 4.5 mmol/L (3.5-5.1); Sodium 136 mmol/L (136-145); Total Protein 8.3 g/dL (6.4-8.2); Triglyceride 89 mg/dL (<150)
[2023-04-14 17:15] LABS: PSA, Ultrasensitive 1.2 ng/mL (<= 4.5)
[2023-04-22 16:26] LABS: Testosterone, Total 232 ng/dL (240-950)
== END 2023-04-13 04:28 | disposition home or self-care (01) ==
LOC: LOS 04:27
PROVIDERS: PCP Physician Assistant Medical; Visit Provider Physician Assistant Medical
DX: E78.5 Hyperlipidemia, unspecified (principal); R73.03 Prediabetes; C61 Malignant neoplasm of prostate
CPT/HCPCS: 36415; 80053; 80061; 84153; 84403; 83036

== ENCOUNTER 2023-10-30 09:20 | Outpatient (CLI) | payer MEDICARE, BC, SELFPAY ==
--- NOTE | 2023-10-30 08:15 | DI.RAD_ITS ---
Exam(s) XR KNEE RT 2V AP,LAT EXAM: XR KNEE RT 2V AP,LAT CLINICAL HISTORY: ANNUAL F/U R TKA. TECHNIQUE: 2D digital imaging was performed. Three views. COMPARISON: CR XR STANDING ALIGNMENT from 11/10/2022 CR XR KNEE RT 1V from 11/10/2022 FINDINGS: BONES: No acute fracture is present. No bony destructive lesion is seen. Enthesophyte upper pole of t he patella. JOINTS: The knee prosthesis is normally aligned. No joint effusion is seen. SOFT TISSUE: Calcifications seen superior to patella. Anterior soft tissue swelling. IMPRESSION: Stable appearance of total knee prosthesis. DATA REPOSITORY: RADIATION DOSE DELIVERED:
== END 2023-10-30 09:21 | disposition home or self-care (01) ==
LOC: DIORS 09:20
PROVIDERS: PCP Physician Assistant Medical; Referring Provider Physician Assistant Medical; Visit Provider Physician Assistant
DX: Z96.651 Presence of right artificial knee joint (principal); Z47.1 Aftercare following joint replacement surgery
CPT/HCPCS: 99213; 73560

== ENCOUNTER 2024-04-05 11:09 | Outpatient (REF) | payer MEDICARE, BC, SELFPAY ==
[2024-04-05 17:50] LABS: ALT 48 U/L (16-63); AST 35 U/L (15-37); Alkaline Phosphatase 72 U/L (46-116); Anion Gap 8.6 mmol/L (3-11); BUN 21 mg/dL (7-18); Bilirubin, Total 0.59 mg/dL (0.2-1.0); CO2 28.4 mmol/L (21.0-32.0); CREATININE 0.9 mg/dL (0.70-1.30); Calcium 9.9 mg/dL (8.5-10.1); Chloride 102 mmol/L (98-107); Creatine Kinase 493 U/L (39-308); Estimated GFR 91.88 (mL/min/1.73m2); Glucose 121 mg/dL (74-106); Sodium 139 mmol/L (136-145); Total Protein 7.8 g/dL (6.4-8.2)
[2024-04-05 18:06] LABS: Calculated LDL 143 mg/dL (<100); Cholesterol 241 mg/dL (<200); HDL Cholesterol 84 mg/dL (40-60); Triglyceride 70 mg/dL (<150)
== END 2024-04-05 11:10 | disposition home or self-care (01) ==
LOC: NCHCN 11:09
PROVIDERS: PCP Physician Assistant Medical; Visit Provider Physician Assistant Medical
DX: E78.5 Hyperlipidemia, unspecified (principal)
CPT/HCPCS: 80053; 80061; 82550

== ENCOUNTER 2024-05-05 13:23 | Outpatient (CLI) | payer MEDICARE, BC, SELFPAY ==
[2024-05-05 14:04] LABS: Creatine Kinase 524 U/L (39-308)
== END 2024-05-05 13:24 | disposition home or self-care (01) ==
LOC: LBO 13:23
PROVIDERS: PCP Physician Assistant Medical; Visit Provider Physician Assistant Medical
DX: R74.8 Abnormal levels of other serum enzymes (principal)
CPT/HCPCS: 36415; 82550

== ENCOUNTER 2024-10-03 09:24 | Outpatient (REF) | payer MEDICARE, BC, SELFPAY ==
[2024-10-03 16:09] LABS: Hemoglobin A1C 6.1 % (<5.7)
[2024-10-03 16:58] LABS: ALT 40 U/L (16-63); AST 29 U/L (15-37); Albumin 3.9 g/dL (3.4-5.0); Alkaline Phosphatase 67 U/L (46-116); Anion Gap 6.8 mmol/L (3-11); BUN 20 mg/dL (7-18); Bilirubin, Total 0.5 mg/dL (0.2-1.0); CO2 29.2 mmol/L (21.0-32.0); CREATININE 1.1 mg/dL (0.70-1.30); Calcium 9.6 mg/dL (8.5-10.1); Calculated LDL 179 mg/dL (<100); Chloride 105 mmol/L (98-107); Cholesterol 279 mg/dL (<200); Estimated GFR 71.77 (mL/min/1.73m2); Glucose 109 mg/dL (74-106); HDL Cholesterol 73 mg/dL (>or=40); Sodium 141 mmol/L (136-145); Total Protein 7.7 g/dL (6.4-8.2); Triglyceride 137 mg/dL (<150); Vitamin B12 478 pg/mL (193-986)
[2024-10-03 17:00] LABS: Folate > 20.0 ng/mL (8.6-20.0)
== END 2024-10-03 09:25 | disposition home or self-care (01) ==
LOC: NCHCN 09:24
PROVIDERS: PCP Physician Assistant Medical; Visit Provider Physician Assistant Medical
DX: E78.5 Hyperlipidemia, unspecified (principal); R73.03 Prediabetes
CPT/HCPCS: 80053; 80061; 82607; 82746; 83036

== ENCOUNTER 2024-11-17 08:57 | Outpatient (CLI) | payer MEDICARE, BC, SELFPAY ==
--- NOTE | 2024-11-17 07:30 | DI.RAD_ITS ---
Exam(s) XR KNEE RT 2V AP,LAT EXAM: XR KNEE RT 2V AP,LAT CLINICAL HISTORY: ANNUAL F/U R TKA. TECHNIQUE: 2D digital imaging was performed. Two images were obtained. AP and lateral views were ob tained. COMPARISON: CR XR KNEE RT 2V AP,LAT from 10/30/2023 FINDINGS: BONES: There are stable post operative changes of a right total knee arthroplasty present. No fractu re or dislocation. JOINTS: The orthopedic hardware is in good position. The orthopedic hardware appears stable compared to the examination from 10/30/2023. No new areas of lucency is seen around the orthopedic hardware. No evidence of hardware loosening. SOFT TISSUE: There is edema seen in the cysts prepatellar soft tissues. Dystrophic calcifications ar e again seen superior to the patella. There also well corticated osseous density seen inferior to th e patella on the lateral view. IMPRESSION: Stable appearance of the right knee and the right total knee arthroplasty. DATA REPOSITORY: RADIATION DOSE DELIVERED:
== END 2024-11-17 08:58 | disposition home or self-care (01) ==
LOC: DIORS 08:58
PROVIDERS: PCP Physician Assistant Medical; Referring Provider Physician Assistant Medical; Visit Provider Physician Assistant
DX: Z96.651 Presence of right artificial knee joint (principal); Z47.1 Aftercare following joint replacement surgery
CPT/HCPCS: 99024; 73560

== ENCOUNTER 2025-02-13 14:48 | Outpatient (REF) | payer MEDICARE, BC, SELFPAY ==
[2025-02-13 18:28] LABS: Calculated LDL 169 mg/dL (<100); Cholesterol 256 mg/dL (<200); HDL Cholesterol 72 mg/dL (>or=40); Triglyceride 78 mg/dL (<150)
[2025-02-13 18:41] LABS: Hemoglobin A1C 5.8 % (<5.7)
== END 2025-02-13 14:49 | disposition home or self-care (01) ==
LOC: NCHCN 14:48
PROVIDERS: PCP Physician Assistant Medical; Visit Provider Physician Assistant Medical
DX: E78.5 Hyperlipidemia, unspecified (principal); R73.03 Prediabetes
CPT/HCPCS: 80061; 83036

== ENCOUNTER 2025-03-15 08:50 | Outpatient (REF) | payer MEDICARE, BC, SELFPAY ==
[2025-03-15 17:27] LABS: Creatine Kinase 398 U/L (39-308); TSH 1.93 uIU/mL (0.36-3.74)
== END 2025-03-15 08:51 | disposition home or self-care (01) ==
LOC: NCHCN 08:50
PROVIDERS: PCP Physician Assistant Medical; Visit Provider Physician Assistant Medical
DX: E78.5 Hyperlipidemia, unspecified (principal); R79.89 Other specified abnormal findings of blood chemistry
CPT/HCPCS: 82550; 84439; 84443